=== PATIENT | female | born 1950 | race Caucasian/White ===

== ENCOUNTER → 2016-03-02 | Outpatient (CLI) | payer OTHER, MEDICARE ==
--- NOTE | 2016-03-04 09:08 | IR ---
Interventional consult Relative history: Patient is 2 months after bilateral lower extremity varicose vein treatment. PHYSICAL EXAM: The areas of bruising have significantly improved. Areas of lumpy bumpiness have also improved significantly, with mild residual areas present in the medial knees bilaterally. They are as ymptomatic. Otherwise, the incisions have healed very well. No residual varicosities. Patient's symptoms have res olved very well. Patient has continued to wear thigh high compression stockings. Consultation: Bedside ultrasound was performed, confirming the above findings of trapped blood at the medial knee and an area of very superficially located greater saphenous vein in the right leg. Again , these are asymptomatic. Otherwise, there is no evidence for recurrence of varicosities or recollateralization of tributaries. ASSESSMENT: Overall excellent sonographic and clinical outcome. Recommendation: 1. I would continue to wear compression stockings, especially knee high, during winter time. 2. I would continue to apply warm compresses and massage therapy to further help resorb the medial kn ee areas of trapped blood. 3. Come summer time, patient should be able to take compression stocking off completely and only wear during prolonged travel or sitting time. Patient is going to [place] at the end of March, and it i s absolutely okay for the patient to not wear compression stocking for the entire exam she is there. Patient does not have the need to follow-up with Interventional Radiology any further at this point, until additional issues arise. Patient expressed understanding of all the information discussed today. She was fairly happy with the overall outcome. Total face to face consultation was half an hour. Crosscutting Measure: Patient's current list of medications including all known prescriptions, over- the-counters, herbals, and vitamin/mineral/dietary supplements are reviewed. Medications' name, dosa ge, frequency, and route of administration are confirmed. Patient is a nonsmoker.
== END ==
LOC: FIMAGING 16:07
PROVIDERS: ATTEND Radiology Diagnostic Radiology
DX: Z48.812 Encounter for surgical aftercare following surgery on the circulatory system (principal)

== ENCOUNTER → 2016-08-09 | Outpatient (CLI) | payer OTHER, MEDICARE | LOC: BHFA 13:15 | PROVIDERS: ATTEND Internal Medicine Interventional Cardiology | DX: I10 Essential (primary) hypertension (principal) ==

== ENCOUNTER 2016-08-24 05:43 | Inpatient (IN) | payer OTHER, MEDICARE ==
[2016-08-24] MEDS ORDERED: morphINE PF 5 MG/10 ML INJ IT ONE (05:51)
[2016-08-24] MEDS ORDERED: LIDOCAINE 1% 2 ML INJ ID PRN (05:55)
[2016-08-24] MEDS ORDERED: LR 1,000 ML IV ONE (05:55)
[2016-08-24] MEDS ORDERED: morphINE SR 15 MG TAB PO ONE (06:00)
[2016-08-24] MEDS ORDERED: VANCOMYCIN 1.25 GM in D5W 250 ML IV ONE (06:00)
--- NOTE | 2016-08-24 06:45 | PDHPUP ---
History & Physical Update H&P update statement: This history and physical update is based on an assessment of the patient which was completed after admission or registration (within 24 hours), but prior to the surgery/procedure. H&P update: H&P reviewed & patient examined, no change in patient's condition since H&P completed (Consents signed and site marked. All questions answered.)
[2016-08-24] MEDS ORDERED: BACITRACIN 50,000 UNITS/10 ML SYR IRR ONE ×2 (06:49→11:07)
[2016-08-24] MEDS ORDERED: THROMBIN (BOVINE) 20,000 UNIT VIAL TP ONE ×2 (06:49→09:13)
[2016-08-24] MEDS ORDERED: BUPIVACAINE/EPI 0.25% 30 ML SDV ONE (06:49)
[2016-08-24] MEDS ORDERED: MIDAZOLAM 2 MG/2 ML VIAL IVP ONE (07:00)
--- NOTE | 2016-08-24 07:05 | PDANEPAE ---
ANE Past Medical History - Cardiovascular History Hx Hypertension: Yes Hx Arrhythmias: No Hx Chest Pain: No Hx Coronary Artery / Peripheral Vascular Disease: No Hx CHF / Valvular Disease: No Hx Palpitations: No Cardiovascular History Comment: [place] 1996 - Pulmonary History Hx COPD: No Hx Asthma/Reactive Airway Disease: No Hx Recent Upper Respiratory Infection: No Hx Oxygen in Use at Home: No Hx Sleep Apnea: No Sleep Apnea Screening Result - Last Documented: Negative Pulmonary History Comment: SINUS INFECTION 06/2016 - Neurologic History Hx Cerebrovascular Accident: No Hx Seizures: No Hx Dementia: No - Endocrine History Hx Diabetes: No Hypothyroid: No Hyperthyroid: No Obesity: no Endocrine History Comment: PRE DIABETIC CONTROLLED WITH DIET AND EXERCISE - Renal History Hx Renal Disorders: No - Liver History Hx Hepatic Disorders: No - Neurological & Psychiatric Hx Hx Neurological and Psychiatric Disorders: No - Cancer History Hx Cancer: No - Congenital Disorder History Hx Congenital Disorders: No - GI History Hx Gastrointestinal Disorders: Yes Gastrointestinal History Comment: RELATED TO NUTS OR FAT. FEELS INFLAMMATION IN CHEST - Other Health History Other Health History: RESIDUAL RT KNEE DISCOMFORT POST TOTAL KNEE 05/2015. SPINAL STENOSIS,RADICULOPATHY. ECZEMA - Chronic Pain History Chronic Pain: Yes (RT KNEE,LOWER LUMBAR,RADIATION DOWN LEGS NT) - Surgical History Prior Surgeries: DANNIE VEIN LIGATION. RT TOTAL KNEE 05/2015. SPLEENECTOMY FOR LOW PLATELET COUNT 1980. X 2. HYSTERECTOMY ANE Review of Systems - Exercise capacity METS (RN): 4 METS - Systems Cardiac: Reports: no symptoms ANE Patient History - Allergies Allergies/Adverse Reactions: cobalt Allergy (Verified 04/24/15 13:21) gluten Allergy (Verified 04/24/15 13:17) lactose Allergy (Verified 04/24/15 13:17) latex Allergy (Verified 04/24/15 13:16) lomefloxacin [From Maxaquin] Allergy (Verified 08/12/16 12:14) meloxicam Allergy (Verified 08/12/16 12:14) meperidine HCl [From Demerol] Allergy (Verified 05/20/15 11:28) Milk Containing Products [dairy] Allergy (Verified 08/24/16 06:17) Abdominal Pain nickel Allergy (Verified 04/24/15 13:20) oxycodone HCl [From Percocet] Allergy (Verified 05/20/15 11:28) Other-Enter Comments peanut Allergy (Verified 04/24/15 13:18) Penicillins Allergy (Verified 04/24/15 13:15) Quinolones Allergy (Verified 05/20/15 13:23) Sulfa (Sulfonamide Antibiotics) Allergy (Verified 04/24/15 13:15) - Home Medications Home Medications: Atenolol [Tenormin 25 mg (*)] 25 mg PO HS 04/18/15 [Last Taken 08/23/16] Herbals/Supplements -Info Only 1 tab PO DAILY 04/18/15 [Last Taken 08/17/16] Hydrochlorothiazide [HCTZ (*)] 12.5 mg PO DAILY 04/18/15 [Last Taken 08/23/16] Aspirin [Aspirin 81mg (*)] 81 mg PO DAILY 01/07/16 [Last Taken 08/17/16] - NPO status NPO Since - Liquids (Date): 08/23/16 NPO Since - Liquids (Time): 20:00 NPO Since - Solids (Date): 08/23/16 NPO Since - Solids (Time): 19:30 - Anes Hx Anes Hx: no prior problems - Smoking Hx Smoking Status: Former smoker - Alcohol Use Alcohol Use: Rarely - Family Anes Hx Family Anes Hx: none ANE Labs/Vital Signs - Vital Signs Blood Pressure: 166/97 Heart Rate: 68 Respiratory Rate: 18 O2 Sat (%): 94 Height: 177.8 cm Weight: 76.204 kg ANE Physical Exam - Airway Neck exam: FROM Mallampati Score: Class 3 Mouth exam: normal dental/mouth exam - Pulmonary Pulmonary: no respiratory distress, no rales or rhonchi, clear to auscultation - Cardiovascular Cardiovascular: regular rate and rhythym, no murmur, rub, or gallop - ASA Status ASA Status: II ANE Anesthesia Plan Anesthesia Plan: general endotracheal anesthesia Lines/Monitors: additional IV
[2016-08-24] MEDS ORDERED: MIDAZOLAM 2 MG/2 ML VIAL ONE (07:11)
[2016-08-24] MEDS ORDERED: fentaNYL 100 MCG/2 ML INJ ONE ×3 (07:16→14:42)
[2016-08-24] MEDS ORDERED: REMIFENTANIL HCL 1 MG VIAL ONE ×3 (07:16→12:51)
[2016-08-24] MEDS ORDERED: LIDOCAINE 2% 5 ML SDV ONE (07:17)
[2016-08-24] MEDS ORDERED: ROCURONIUM 50 MG/5 ML VIAL ONE (07:17)
[2016-08-24] MEDS ORDERED: PROPOFOL/EMULSION 500 MG/50 ML BOTTLE IV ONE ×3 (07:17→12:51)
[2016-08-24] MEDS ORDERED: PROPOFOL 200 MG/20 ML VIAL ONE (07:17)
[2016-08-24] MEDS ORDERED: ONDANSETRON 4 MG/2 ML VIAL ONE (07:17)
[2016-08-24] MEDS ORDERED: TRANEXAMIC ACID 760 MG in NS 100 ML IV ONE ×2 (07:30→13:00)
[2016-08-24] MEDS ORDERED: DEXAMETHASONE 4 MG/ML VIAL ONE ×2 (07:50)
[2016-08-24] MEDS ORDERED: CITRATE DEXTROSE SOLN 500 ML BAG ONE (07:51)
[2016-08-24] MEDS ORDERED: epHEDrine SULFATE 10 MG/ML SYR ONE ×3 (07:56→09:32)
[2016-08-24] MEDS ORDERED: LR 500 ML IV PRN (08:24)
[2016-08-24] MEDS ORDERED: PROMETHAZINE HCL 25 MG/ML INJ IVP PRN (08:24)
[2016-08-24] MEDS ORDERED: LABETALOL HCL 50 MG/10 ML SYR IVP PRN (08:24)
[2016-08-24] MEDS ORDERED: HYDROmorphONE/DILAUDID 1 MG/ML SYR IVP PRN (08:24)
[2016-08-24] MEDS ORDERED: fentaNYL 100 MCG/2 ML INJ IVP PRN (08:24)
[2016-08-24] MEDS ORDERED: NALOXONE HCL 0.4 MG/ML INJ IVP PRN (08:24)
[2016-08-24] MEDS ORDERED: ONDANSETRON 4 MG/2 ML VIAL IVP PRN ×2 (08:24→13:55)
[2016-08-24] MEDS ORDERED: ALBUMIN 5% 250 ML BOTTLE IV ONE (11:27)
[2016-08-24] MEDS ORDERED: morphINE PF 5 MG/10 ML INJ ONE (12:42)
[2016-08-24] MEDS ORDERED: DIAZEPAM 10 MG/2 ML SYR ONE (13:11)
[2016-08-24] MEDS ORDERED: PHENYLEPHRINE 10 MG/ML SDV ONE (13:12)
[2016-08-24] MEDS ORDERED: MAGNESIUM HYDROXIDE 30 ML UDCUP PO PRN (13:55)
[2016-08-24] MEDS ORDERED: BISACODYL 10 MG SUPP PR PRN (13:55)
[2016-08-24] MEDS ORDERED: LACTULOSE 20 GM/30 ML UDCUP PO PRN (13:55)
[2016-08-24] MEDS ORDERED: POLYETHYLENE GLYCOL 3350 17 GM PKT PO PRN (13:55)
[2016-08-24] MEDS ORDERED: DIAZEPAM 10 MG/2 ML SYR IVP PRN (14:06)
--- NOTE | 2016-08-24 14:13 | POSTOPPROG ---
Post Op Note Date of Operation: 08/24/16 Surgeon: Fani Ridley Expedition Supervisor: Aaron Ridley PA-C Anesthesiologist: Emiliana Anesthesia: GET(General Endotracheal) Pre-op Diagnosis: lumbar stenosis Post-op Diagnosis: same Indication: pain, radiculopathy Procedure: L2-5 laminectomy, TLIF, Posterior fusion with dural tear repair Findings: Please see dictation Inf/Abcess present in the surg proc area at time of surgery?: No Depth: Organ Space EBL: 100-500 Complications: CSF leak repaired primarily Drains: Gerard Harley Specimen(s): none PA Addendum - Addendum .: S: Pt awake in bed, c/o soreness in her back. Denies leg numbness or tingling. O: AAOx3 NAD VSS MAEx4 Motor 5/5 BUE/BLE +LT Incision dressed cdi JPx1 Limon in A: 66 yo F s/p L2-5 laminectomy, TLIF, and posterior fusion. Durotomy repair. P: Flat in bed until Tuesday AM, ok to roll side to side Pain management TEDs, SCDs, lovenox POD#1 Brace to be worn once OOB Post op xrays once ambulatory Continue limon until ambulatory Call NS with any issues
--- NOTE | 2016-08-24 14:31 | POSTANESTH ---
Post Anesthetic Evaluation Cardiovascular Status: Normal, Stable Respiratory Status: Normal, Stable Level of Consciousness/Mental Status: Moderately Sleepy Pain Control: Adequate, Prn Tx Ordered Nausea/Vomiting Control: Adequate, Prn Tx Ordered Complications Possibly Related to Anesthesia: None Noted
[2016-08-24] MEDS ORDERED: HYDROmorphONE/DILAUDID 1 MG/ML SYR ONE (14:42)
[2016-08-24] MEDS: fentaNYL 100 MCG/2 ML INJ IVP PRN ×2 (14:45→14:53)
[2016-08-24] MEDS: HYDROmorphONE/DILAUDID 1 MG/ML SYR IVP PRN ×2 (14:47→15:00)
[2016-08-24] MEDS: ACETAMINOPHEN 500 MG TAB PO SCH ×2 (15:58→21:37)
[2016-08-24] MEDS: NS W/ 20 KCl/L 1,000 ML IV SCH (16:13)
[2016-08-24] MEDS: ceFAZolin 2 GM/DEXTROSE 100 ML IV SCH (17:42)
[2016-08-24] MEDS: FAMOTIDINE 20 MG TAB PO SCH (21:37)
[2016-08-24] MEDS: SENNOSIDES/DOCUSATE SODIUM TAB PO SCH (21:37)
[2016-08-24] MEDS: ATENOLOL 25 MG TAB PO SCH (21:40)
[2016-08-25] MEDS: ceFAZolin 2 GM/DEXTROSE 100 ML IV SCH (02:04)
--- NOTE | 2016-08-25 04:38 | GOP ---
[f rep st] OPERATIVE REPORT DATE OF OPERATION: 08/24/2016 SURGEON: Jose Diaz MD EXECUTIVE ASST: ABBIE Barragan. PREOPERATIVE DIAGNOSIS: 1. L2 through L5 lumbar spondylosis with spinal stenosis. 2. L4-5 spondylolisthesis. 3. Low back pain and radiculopathy. 4. Treatment refractory to nonoperative intervention. POSTOPERATIVE DIAGNOSIS: 1. L2 through L5 lumbar spondylosis with spinal stenosis. 2. L4-5 spondylolisthesis. 3. Low back pain and radiculopathy. 4. Treatment refractory to nonoperative intervention. PROCEDURE PERFORMED: 1. Posterior arthrodesis with approach to L2, L3, L4, and L5. 2. Posterolateral fusion with bilateral pedicle screw placement into L2, L3, L4 , and L5 from the [employer] system. 3. Posterolateral fusion on the right between L2 and L5 with morselized autograft and allograft. 4. Decompressive laminectomy with bilateral medial facetectomies, L2-L3, L3-L4 , L4-L5. 5. Left-sided L2-L3 transforaminal lumbar interbody fusion with a 7 x 20 mm titanium PEEK elevate cage filled with morselized autograft and allograft. 6. L3-L4 left-sided transforaminal lumbar interbody fusion with a 7 x 23 mm titanium PEEK elevate cage filled with morselized autograft and allograft. 7. L4-L5 left-sided transforaminal lumbar interbody fusion with a 7 x 23 mm titanium PEEK elevate cage filled with morselized autograft and allograft. 8. Use of intraoperative 3D Stealth navigation. 9. Use of intraoperative fluoroscopy, less than 1 hour physician time. 10. Use neuromonitoring. 11. Use of the operating microscope. 12. Injection of preservative-free intrathecal narcotics. FINDINGS: per imaging INDICATIONS: The patient is a 66-year-old woman who unfortunately suffers from low back pain with lower extremity claudication. She had evidence of spondylolisthesis L4-5 with severe spinal stenosis L2 through L5. After failing nonoperative interventions, after discussion of the risks, benefits, and treatment alternatives, we decided to proceed forth with surgery as described above. DESCRIPTION OF PROCEDURE: The patient was brought to the operating theater and underwent general endotracheal anesthesia without complication. She had Venodynes, ZULEMA hose, and appropriate lines placed by Anesthesia. She was flipped prone onto the Gerard table and all bony processes inspected and padded. The lower lumbar region was prepped and draped in the usual sterile surgical fashion. A time-out was completed per protocol. The patient received antibiotics within 1 hour of incision. Using lateral fluoroscopy and a spinal needle, we picked our entry point to the L2 through L5 levels. This was somewhat difficult to visualize, but we did verify the L4-5 spondylolisthesis which correlated with our imaging studies that she had almost a sacralized L5-S1 level. The incision was infiltrated with Marcaine with epinephrine and taken down with the scalpel blade. Using the monopolar, it was taken down in the midline through lumbodorsal fascia and subperiosteal dissection carried to the lateral aspects of of L2, L3, L4, and L5. Deep retractors placed to maintain our exposure. We confirmed the level using lateral fluoroscopy. We attached the 3D Stealth navigation clamp to the spinous process of L5 and completed a 3D Stealth navigation spin. Using 3D stealth navigation, we then placed the organ recovery coordinator holes for the bilateral pedicle screws at L2, L3, L4, and L5. All holes were manually palpated with no evidence of any cortical breaches. We then tapped and placed 5.5 x 50 mm screw on the left at L2, 5.5 x 55 mm screw on the right at L2, 6.5 x 55 mm screws bilateral in L3, and left-sided L4, 6.5 x 50 mm screw on the right at L4, and a 6.5 x 45 mm bilaterally in L5 from the [employer] Legacy system. Another 3D Stealth navigation spin was completed that demonstrated excellent placement of the hardware. Using a combination of the bur tip on the drill and Kerrison punches and a Leksell rongeur, we completed a decompressive laminectomy with bilateral mesial facetectomies L2-L3, L3-L4, L4-L5. The bone was very hypertrophied. During removal of the ligament, which was noted to be extremely adherent at the L2-3 level, we achieved a very small dural tear which I closed primarily with a 6-0 Prolene stitch. There was no further evidence of any egress of CSF fluid after that point. At this point, we moved down and resected the pars and completed foraminotomies on the left side between L2-L3, L3-L4, and L4-L5. We moved up to L2-L3 where we distracted the interspace and completed a left-sided L2-3 diskectomy. We prepared the cartilagenous endplates and measured the interbody space. We then placed a 7 x 28 mm titanium PEEK elevate cage filled with morselized autograft and allograft anteriorly toward the midline. We packed additional morcellized autograft into the disk space for the interbody fusion and moved down to L3-4. We distracted the L3-L4 level and completed a left-sided L3-L4 diskectomy. We prepared the cartilagenous endplates and measured the interbody space. We then placed a 7 x 23 mm titanium PEEK elevate cage filled with morselized autograft and allograft anteriorly toward the midline. We packed additional morcellized autograft into the disk space for the interbody fusion. We then moved down to L4-5 where we again distracted the disk space and completed a left-sided L4-5 diskectomy. We prepared the cartilagenous endplates and measured the interbody space. We then placed a 7 x 23 mm titanium PEEK elevate cage filled with morselized autograft and allograft anteriorly toward the midline. We packed additional morcellized autograft into the disk space for interbody fusion. We let down distraction and decorticated the bone on the right side between L2 and L5. We placed 2 lordotic rods in the heads of the screws between L2 and L5 and secured them down with cap screws which were tightened per the contracting specialist's setting. We placed morselized autograft and allograft on the right side between L2-L5 for the posterolateral fusion. We injected preservative-free intrathecal narcotics and placed a small layer of Surgicel and DuraSeal over the dural primary closure at the L2-3 level. At this point, a drain was left in the subfascial space and the wound then closed in multiple layers using Vicryl sutures for the deep layers and Dermabond for the skin. The patient's wounds were dressed sterilely. She was flipped supine onto the transfer cart. She was awakened, extubated, taken to the recovery room in stable condition. There was an improvement in neuro monitoring after the decompression in her motor function. COMPLICATIONS: Small dural tear was achieved at the superior aspect of L2-3 on the right side and was closed primarily with a 6-0 Prolene stitch. /[id number]/MODL MTDD
[2016-08-25 05:18] LABS: % IMMATURE GRANULYOCYTES 0.3 % (0.0-1.1); ABSOLUTE IMMATURE GRANULOCYTES 0.02 10^3/uL (0.00-0.10); ADD DIFF? NO; ADD MORPH? NO; ADD SCAN? NO; ATYPICAL LYMPHOCYTE FLAG 0 (0-99); FRAGMENT RBC FLAG 0 (0-99); HEMATOCRIT 28.6 % (38.0-47.0); HEMOGLOBIN 9.3 g/dL (12.6-16.3); LEFT SHIFT FLG 10 (0-99); LIPEMIA HEMOLYSIS FLAG 80 (0-99); MEAN CELL HEMOGLOBIN 26.6 pg (27.9-34.1); MEAN CELL HEMOGLOBIN CONCENTR. 32.5 g/dL (32.4-36.7); MEAN CELL VOLUME 81.7 fL (81.5-99.8); MEAN PLATELET VOLUME 10.5 fL (8.7-11.7); PLATELET CLUMPS FLAG 0 (0-99); PLATELET COUNT 230 10^3/uL (150-400); RED CELL DISTRIBUTION WIDTH 16.5 % (11.5-15.2)
[2016-08-25] MEDS: ACETAMINOPHEN 500 MG TAB PO SCH ×3 (05:45→22:26)
[2016-08-25 06:14] LABS: ANION GAP 11 mEq/L (8-16); CALCIUM 8.3 mg/dL (8.5-10.4); CARBON DIOXIDE 21 mEq/l (22-31); CHLORIDE 111 mEq/L (97-110); CREATININE 0.7 mg/dL (0.6-1.0); GLOMERULAR FILTRATION RATE > 60; GLUCOSE 96 mg/dL (70-100); POTASSIUM 4.1 mEq/L (3.5-5.2); SODIUM 143 mEq/L (134-144)
--- NOTE | 2016-08-25 08:50 | SOAPPROG ---
SOAP Progress Note Assessment/Plan: Assessment: 66 yo F POD #1 L2-5 laminectomy complicated by CSF leak Plan: neuro: stable and doing well overall hob flat until 08/27/16 then advance activity in am scd/frandy/lovenox for DVT prophylaxis remove AVELINA on 08/26 please call with neuro changes discussed with Dr Diaz 08/25/16 08:47 Subjective: some back soreness, no leg pain, no headaches, itching but no rash Objective: Vital Signs Temp Pulse Resp BP Pulse Ox 37.1 C 67 14 104/60 93 08/25/16 07:19 08/25/16 07:19 08/25/16 07:19 08/25/16 07:19 08/25/16 07:19 Laboratory Results 08/25/16 04:46 08/25/16 04:46 08/24/16 08/25/16 08/26/16 05:59 05:59 05:59 Intake Total 4260 Output Total 3790 250 Balance 470 -250 AAOX4, +FC PERRL, EOMI, no facial droop 5/5 + light touch C/D/I ICD10 Worksheet Patient Problems: Problems Problem Status Onset Fusion of spine of lumbar region Acute Primary osteoarthritis of right knee Acute - ICD10 Problem Qualifiers (1) Fusion of spine of lumbar region
[2016-08-25] MEDS: FAMOTIDINE 20 MG TAB PO SCH ×2 (09:37→20:54)
[2016-08-25] MEDS: ENOXAPARIN 40 MG/0.4 ML SYR SC SCH (09:38)
[2016-08-25] MEDS: SENNOSIDES/DOCUSATE SODIUM TAB PO SCH ×2 (09:38→20:53)
[2016-08-25] MEDS: HYDROCHLOROTHIAZIDE 12.5 MG CAP PO SCH (09:38)
[2016-08-25] MEDS: diphenhydrAMINE 25 MG CAP PO PRN ×2 (09:59→15:44)
[2016-08-25] MEDS: METHOCARBAMOL 750 MG TAB PO PRN ×3 (11:30→20:52)
[2016-08-25] MEDS: DIAZEPAM 5 MG TAB PO PRN (16:09)
[2016-08-25] MEDS: ATENOLOL 25 MG TAB PO SCH (20:53)
[2016-08-25] MEDS: HYDROmorphONE/DILAUDID 2 MG TAB PO PRN (20:55)
[2016-08-26] MEDS: DIAZEPAM 5 MG TAB PO PRN (02:37)
[2016-08-26] MEDS: NS W/ 20 KCl/L 1,000 ML IV SCH ×2 (02:42→15:51)
[2016-08-26] MEDS: ACETAMINOPHEN 500 MG TAB PO SCH ×3 (05:09→21:56)
[2016-08-26] MEDS: HYDROmorphONE/DILAUDID 2 MG TAB PO PRN ×4 (05:09→21:56)
[2016-08-26] MEDS: METHOCARBAMOL 750 MG TAB PO PRN ×3 (05:09→22:00)
[2016-08-26] MEDS: SENNOSIDES/DOCUSATE SODIUM TAB PO SCH ×2 (08:24→21:58)
[2016-08-26] MEDS: HYDROCHLOROTHIAZIDE 12.5 MG CAP PO SCH (08:24)
[2016-08-26] MEDS: ENOXAPARIN 40 MG/0.4 ML SYR SC SCH (08:24)
[2016-08-26] MEDS: FAMOTIDINE 20 MG TAB PO SCH ×2 (08:25→21:57)
--- NOTE | 2016-08-26 09:06 | NEUSURGPN ---
Assessment/Plan: Assessment: 66 yo F POD #2 L2-5 laminectomy complicated by CSF leak Plan: neuro: stable and doing well overall- back pain as expected, but no leg pain. Also has some abdominal pain but no bowel movement since admission. Will most likely get better when able to get up and ambulate more. hob flat until 08/27/16 then advance activity in am scd/frandy/lovenox for DVT prophylaxis remove AVELINA today later this afternoon please call with neuro changes discussed with Dr Diaz Subjective: Patient is doing well. Expected back pain, but tolerable on medications. Has some abdominal pain but has not had a BM. Objective: NAD, VSS CN II-XII grossly intact BLE 06/18= CARTWRIGHT X4 Incision c/d/i-dressed AVELINA X1- output 110 last 24- serosang in bulb Catheter Insertion Date: 08/25/16 - Physician Discussed Patient with : Emily Patient Seen by : Emily Neurosurgery Physical Exam - Vitals, I&O, Labs I and O 08/25/16 08/26/16 08/27/16 05:59 05:59 05:59 Intake Total 4260 835 Output Total 3790 2635 Balance 470 -1800 Weight 76.204 kg Intake: Oral (ml) 560 650 IV Intake (ml) 3450 IV Infused (ml) 250 185 NS W/ 20 KCl/L 1,000 ml @ 185 75 mls/hr IV CONT GRACE Rx #:[id number] Vancomycin 1.25 gm In D5w 250 250 ml @ 166.67 mls/hr IV ONCALL ONE Rx#: [id number] Output: Urine (ml) 3350 2525 Catheter 3350 2525 Estimated Blood Loss (ml) 250 AVELINA Drain Output (ml) 190 110 Left Back Gerard Harley 190 110 Vital Signs Temp Pulse Resp BP Pulse Ox 36.9 C 69 13 118/68 93 08/26/16 07:53 08/26/16 07:53 08/26/16 07:53 08/26/16 08:24 08/26/16 07:53 Laboratory Results 08/25/16 04:46 08/25/16 04:46 ICD10 Worksheet Patient Problems: Problems Problem Status Onset Fusion of spine of lumbar region Acute Primary osteoarthritis of right knee Acute
[2016-08-26] MEDS: ONDANSETRON DISINTEGRATING 4 MG TAB PO PRN ×2 (13:32→18:21)
[2016-08-26] MEDS: ATENOLOL 25 MG TAB PO SCH (21:57)
[2016-08-27] MEDS: DIAZEPAM 5 MG TAB PO PRN ×3 (03:46→18:18)
[2016-08-27] MEDS: ACETAMINOPHEN 500 MG TAB PO SCH ×3 (05:30→21:32)
[2016-08-27] MEDS ORDERED: MAGNESIUM CITRATE 300 ML BOTTLE PO ONE (08:14)
[2016-08-27] MEDS: ENOXAPARIN 40 MG/0.4 ML SYR SC SCH (09:22)
[2016-08-27] MEDS: FAMOTIDINE 20 MG TAB PO SCH ×2 (09:22→21:33)
[2016-08-27] MEDS: HYDROCHLOROTHIAZIDE 12.5 MG CAP PO SCH (09:22)
[2016-08-27] MEDS: SENNOSIDES/DOCUSATE SODIUM TAB PO SCH ×2 (09:22→21:33)
--- NOTE | 2016-08-27 09:49 | NEUSURGPN ---
Assessment/Plan: Assessment: 66 yo F POD #3 L2-5 laminectomy complicated by CSF leak that was repaired primarily Plan: neuro: stable and doing well overall- back pain as expected, but no leg pain. Also has some abdominal pain but no bowel movement since admission. Bowel protocol and enema ordered Raise HOB by 10 deg/hr today and then up OOB with therapies once about 45 degrees if tolerating and no spinal headache scd/frandy/lovenox for DVT prophylaxis Dispo sat vs sun pending clinical course Post op xrays pending DC limon once ambulatory Wear brace when OOB please call with neuro changes discussed with Dr Diaz Subjective: Pt resting in bed, has not had BM yet. Objective: AAOx3 NAD VSS MAEx4 Motor 5/5 BLE +LT Incision dressed Urinary Catheter in Place: Yes Urinary Catheter Indication: Other (Use Comment) (bedrest - to be removed once ambulatory) Catheter Insertion Date: 08/25/16 - Physician Discussed Patient with : Emily Neurosurgery Physical Exam - Vitals, I&O, Labs I and O 08/26/16 08/27/16 08/28/16 05:59 05:59 05:59 Intake Total 835 1300 Output Total 2635 1920 Balance -1800 -620 Intake: Oral (ml) 650 500 IV Infused (ml) 185 800 NS W/ 20 KCl/L 1,000 ml @ 185 800 75 mls/hr IV CONT GRACE Rx #:[id number] Output: Urine (ml) 2525 1800 Catheter 2525 1800 AVELINA Drain Output (ml) 110 120 Left Back Gerard Harley 110 120 Other: Number of Voids Catheter 1 Vital Signs Temp Pulse Resp BP Pulse Ox 37.1 C 67 16 132/70 H 93 08/27/16 07:27 08/27/16 07:27 08/27/16 07:27 08/27/16 09:22 08/27/16 07:27 Laboratory Results 08/25/16 04:46 08/25/16 04:46 ICD10 Worksheet Patient Problems: Problems Problem Status Onset Fusion of spine of lumbar region Acute Primary osteoarthritis of right knee Acute
[2016-08-27] MEDS: HYDROmorphONE/DILAUDID 2 MG TAB PO PRN (18:48)
[2016-08-27] MEDS: ATENOLOL 25 MG TAB PO SCH (21:33)
[2016-08-28] MEDS: DIAZEPAM 5 MG TAB PO PRN ×3 (02:12→20:32)
[2016-08-28] MEDS: HYDROmorphONE/DILAUDID 2 MG TAB PO PRN ×4 (02:12→18:35)
[2016-08-28] MEDS: ACETAMINOPHEN 500 MG TAB PO SCH ×3 (06:02→20:34)
[2016-08-28] MEDS: HYDROCHLOROTHIAZIDE 12.5 MG CAP PO SCH (08:49)
[2016-08-28] MEDS: ENOXAPARIN 40 MG/0.4 ML SYR SC SCH (08:49)
[2016-08-28] MEDS: FAMOTIDINE 20 MG TAB PO SCH ×2 (08:50→20:32)
[2016-08-28] MEDS: SENNOSIDES/DOCUSATE SODIUM TAB PO SCH ×2 (08:52→20:33)
--- NOTE | 2016-08-28 12:56 | NEUSURGPN ---
Assessment/Plan: Assessment/Plan: Assessment: 66 yo F POD #4 L2-5 laminectomy complicated by CSF leak that was repaired primarily. Bowel motility improving, no tolerating morphine. feels better upright than laying on back. Plan: neuro: stable and doing well overall- back pain as expected, but no leg pain. OOB w/ Brace scd/frandy/lovenox for DVT prophylaxis Dispo likely tomorrow if does well Post op xrays show stable hardware please call with neuro changes discussed with Dr Diaz Subjective: Pt still with significant pain in bed, valium and robaxin concurrently allow her to sleep well. not tolerating the morphine. Objective: AAOx3 NAD VSS MAEx4 Motor 5/5 BLE +LT Incision dressed, dressing CDI Catheter Insertion Date: 08/25/16 - Physician Discussed Patient with : Emily Neurosurgery Physical Exam - Vitals, I&O, Labs I and O 08/27/16 08/28/16 08/29/16 05:59 05:59 05:59 Intake Total 1300 400 Output Total 1920 1200 Balance -620 -800 Intake: Oral (ml) 500 400 IV Infused (ml) 800 NS W/ 20 KCl/L 1,000 ml @ 800 75 mls/hr IV CONT GRACE Rx #:[id number] Output: Urine (ml) 1800 1200 Catheter 1800 1200 AVELINA Drain Output (ml) 120 Left Back Gerard Harley 120 Other: Intake Quantity Yes Sufficient Number of Voids Catheter 1 Toilet 3 1 Number of Stools Catheter 1 Toilet 3 Vital Signs Temp Pulse Resp BP Pulse Ox 36.6 C 59 L 16 120/64 94 08/28/16 08:00 08/28/16 08:00 08/28/16 08:00 08/28/16 08:49 08/28/16 08:00 Laboratory Results 08/25/16 04:46 08/25/16 04:46 ICD10 Worksheet Patient Problems: Problems Problem Status Onset Fusion of spine of lumbar region Acute Primary osteoarthritis of right knee Acute
[2016-08-28] MEDS: METHOCARBAMOL 750 MG TAB PO PRN (20:32)
[2016-08-28] MEDS: ATENOLOL 25 MG TAB PO SCH (20:33)
[2016-08-29] MEDS: HYDROmorphONE/DILAUDID 2 MG TAB PO PRN ×4 (00:43→16:38)
[2016-08-29] MEDS: ACETAMINOPHEN 500 MG TAB PO SCH ×2 (05:27→13:33)
[2016-08-29] MEDS: METHOCARBAMOL 750 MG TAB PO PRN ×3 (05:27→16:38)
[2016-08-29 07:52] VITALS: BP 123/71; PULSE 65; RESP 16; TEMP 97.7
[2016-08-29] MEDS: SENNOSIDES/DOCUSATE SODIUM TAB PO SCH (09:01)
[2016-08-29] MEDS: FAMOTIDINE 20 MG TAB PO SCH (09:01)
[2016-08-29] MEDS: ENOXAPARIN 40 MG/0.4 ML SYR SC SCH (09:01)
[2016-08-29] MEDS: HYDROCHLOROTHIAZIDE 12.5 MG CAP PO SCH (09:01)
--- NOTE | 2016-08-29 09:40 | NEUSURGPN ---
Date of Surgery: 08/24/16 Post Op Day: 5 Assessment/Plan: Assessment/Plan: Assessment: 66 yo F POD #5 L2-5 laminectomy and PSF complicated by CSF leak that was repaired primarily. Bowel motility improved. feels better upright than laying on back. appears ready for discharge if meets therapy requirements, pt has 20 stairs to climb to get into the home and this is worrisome for her. Plan: neuro: stable and doing well overall- back pain as expected, but no leg pain. OOB w/ Brace scd/frandy/lovenox for DVT prophylaxis Dispo likely today if cleared by PT/OT, OT yet to do full eval. Post op xrays show stable hardware please call with neuro changes discussed with Dr Diaz Subjective: still with pain worse when laying down. WEll controlled this AM on pain meds. Objective: AAOx3 NAD VSS MAEx4 Motor 5/5 BLE +LT Incision dressed, dressing CDI Urinary Catheter in Place: No Catheter Insertion Date: 08/25/16 - Physician Discussed Patient with Dr.: Diaz Neurosurgery Physical Exam - Vitals, I&O, Labs I and O 08/28/16 08/29/16 08/30/16 05:59 05:59 05:59 Intake Total 400 Output Total 1200 Balance -800 Intake: Oral (ml) 400 Output: Urine (ml) 1200 Catheter 1200 Other: Intake Quantity Yes Yes Sufficient Number of Voids Toilet 3 1 Number of Stools Catheter 1 Toilet 3 1 Vital Signs Temp Pulse Resp BP Pulse Ox 36.5 C 65 16 123/71 H 90 L 08/29/16 07:51 08/29/16 07:51 08/29/16 07:51 08/29/16 07:51 08/29/16 07:51 Laboratory Results 08/25/16 04:46 08/25/16 04:46 ICD10 Worksheet Patient Problems: Problems Problem Status Onset Fusion of spine of lumbar region Acute Primary osteoarthritis of right knee Acute
[2016-08-29] MEDS: DIAZEPAM 5 MG TAB PO PRN (13:33)
--- NOTE | 2016-08-29 14:07 | PDIAF ---
- Diagnosis Code Status: Full Code - Medication Management Discharge Medications: Medications to Continue on Transfer Atenolol [Tenormin 25 mg (*)] 25 mg PO HS 04/18/15 [Last Taken 08/23/16] Herbals/Supplements -Info Only 1 tab PO DAILY 04/18/15 [Last Taken 08/17/16] Hydrochlorothiazide [HCTZ (*)] 12.5 mg PO DAILY 04/18/15 [Last Taken 08/23/16] Aspirin [Aspirin 81mg (*)] 81 mg PO DAILY 01/07/16 [Last Taken 08/17/16] Acetaminophen [Tylenol ES 500 mg (*)] 1,000 mg PO Q8HRS #0 tab 08/29/16 [Last Taken Unknown] Diazepam [Valium 5 MG (*)] 5 mg PO Q6H PRN #0 tab 08/29/16 [Last Taken Unknown] Methocarbamol [Robaxin 750 mg (*)] 750 mg PO QID PRN #0 tab 08/29/16 [Last Taken Unknown] Polyethylene Glycol 3350 [Miralax 17 gm (*)] 17 gm PO DAILY PRN #0 pkt 08/29/16 [Last Taken Unknown] Sennosides/Docusate Sodium [Senokot-S] 1 - 2 tab PO BID #0 tab 08/29/16 [Last Taken Unknown] morphINE IR [morphINE IR 15 mg (*)] 15 mg PO Q4HRS PRN #0 tab 08/29/16 [Last Taken Unknown] Discharge Medications: Refer to the Discharge Home Medication list for PRN reason. - Orders Services needed: Home Care, Registered Nurse, Physical Therapy Home Care Face to Face: I certify that this patient was under my care and that I had the required [id number] encounter meeting the encounter requirements on the discharge day. My findings support the fact that the patient is homebound as defined in CMS Chapter 7 Medicare Benefits Manual 30.1.1, The condition of the patient is such that there exists a normal inability to leave home and consequently, leaving home would require a considerable and taxing effort. Diet Recommendation: no restrictions on diet Diet Texture: Regular Texture Diet - Follow Up Care Current Providers and Referrals: TITA GOMEZ [Other] Jose Diaz MD [Medical Doctor] -
[2016-08-29 15:52] VITALS: O2SAT 94
== END 2016-08-29 16:53 | disposition home health service (06) | DRG 460 ==
LOC: F3N 05:43
PROVIDERS: ADMIT Neurological Surgery; ATTEND Neurological Surgery
PROC: 00Q20ZZ Repair Dura Mater, Open Approach (ICD-10-PCS; principal; 2016-08-24 07:15)
PROC: 4A1004G Monitoring of Central Nervous Electrical Activity, Intraoperative, Open Approach (ICD-10-PCS; principal; 2016-08-24 07:15)
PROC: 0SG10AJ Fusion of 2 or more Lumbar Vertebral Joints with Interbody Fusion Device, Posterior Approach, Anterior Column, Open Approach (ICD-10-PCS; principal; 2016-08-24 07:15)
PROC: 8E0WXBZ Computer Assisted Procedure of Trunk Region (ICD-10-PCS; principal; 2016-08-24 07:15)
PROC: 0ST20ZZ Resection of Lumbar Vertebral Disc, Open Approach (ICD-10-PCS; principal; 2016-08-24 07:15)
DX: M47.26 Other spondylosis with radiculopathy, lumbar region (principal); G97.41 Accidental puncture or laceration of dura during a procedure; M48.06 Spinal stenosis, lumbar region; M43.16 Spondylolisthesis, lumbar region
CPT/HCPCS: 86870-90; 97116-GP; 97161-GP; 97166-GO; 97530-GO; 97530-GP; 97535-GO; C1713; G8978-GP-CK; G8979-GP-CI; G8987-GO-CK; G8988-GO-CI; J0690; J1100; J1170; J1200; J1650; J2250; J2274; J2370; J2405; J2704; J3010; J3370; J7060; P9041